=== PATIENT | female | born 1990 | race Caucasian/White ===

== ENCOUNTER 2019-09-07 11:22 | Emergency (ER) | payer OTHER, BC ==
[~2019-09-07] VITALS: Ht 160 cm; Wt 81.6 kg
[2019-09-07 11:35] VITALS: Ht 160 cm; Wt 81.6 kg
[2019-09-07 12:24] LABS: BASOPHIL % 0.3 % (0-2); PLATELET COUNT 318 x10^3mcL (130-400); RED CELL DISTRIBUTION WIDTH 12.8 % (11.5-14.5)
[2019-09-07 12:36] LABS: microscopic required? YES; urine erythrocyte 2+ (NEGATIVE)
[2019-09-07 12:45] LABS: CARBON DIOXIDE 26.3 mmol/L (21-32); CHLORIDE SERUM 104 mmol/L (98-107); POTASSIUM SERUM 3.9 mmol/L (3.5-5.1); SODIUM SERUM 140 mmol/L (136-145)
[2019-09-07 12:46] LABS: ALBUMIN 4.3 g/dL (3.4-5.0); ALKALINE PHOSPHATASE 91 U/L (46-116); ALT/SGPT 15 U/L (14-59); AST/SGOT 11 U/L (15-37); CALCIUM 8.9 mg/dL (8.5-10.1); CREATININE SERUM 0.9 mg/dL (0.6-1.0); GFR1 > 60 mL/min; GLUCOSE SERUM 89 mg/dL (74-106)
[2019-09-07 14:43] VITALS: BP 114/69
== END 2019-09-07 14:43 | disposition home or self-care (01) ==
LOC: ED 11:22
PROVIDERS: Emergency Medicine
DX: J98.01 Acute bronchospasm (principal); Z88.1 Allergy status to other antibiotic agents
CPT/HCPCS: 85378; J2930; J7030

== ENCOUNTER 2020-08-21 09:18 | Emergency (ER) | payer BC ==
[~2020-08-21] VITALS: Ht 160 cm; Wt 90.7 kg
[2020-08-21 13:53] LABS: UA SPECIFIC GRAVITY <=1.005 (1.005-1.035); microscopic required? YES; urine erythrocyte TRACE (NEGATIVE)
[2020-08-21 14:21] LABS: CALCIUM 8.8 mg/dL (8.5-10.1); CARBON DIOXIDE 26.4 mmol/L (21-32); CHLORIDE SERUM 104 mmol/L (98-107); CREATININE SERUM 0.9 mg/dL (0.6-1.0); GFR1 > 60 mL/min; GLUCOSE SERUM 93 mg/dL (74-106); POTASSIUM SERUM 4.3 mmol/L (3.5-5.1); SODIUM SERUM 138 mmol/L (136-145)
[2020-08-21 14:22] LABS: BASOPHIL % 0.3 % (0.2-1.3); PLATELET COUNT 367 x10^3mcL (179-408); RED CELL DISTRIBUTION WIDTH 13.1 % (12.3-17.7)
[2020-08-21 14:30] LABS: ALBUMIN 3.8 g/dL (3.4-5.0); ALKALINE PHOSPHATASE 84 U/L (46-116); ALT/SGPT 21 U/L (14-59); AST/SGOT 6 U/L (15-37); BILIRUBIN TOTAL 0.31 mg/dL (0.20-1.00); LIPASE 79 IU/L (73-393); TOTAL PROTEIN, SERUM 7.2 g/dL (6.4-8.2)
[2020-08-21 15:06] VITALS: BP 102/63
== END 2020-08-21 15:06 | disposition home or self-care (01) ==
LOC: ED 09:18
PROVIDERS: Emergency Medicine
DX: N83.201 Unspecified ovarian cyst, right side (principal); J45.909 Unspecified asthma, uncomplicated
CPT/HCPCS: J1885